=== PATIENT | female | born 1975 | race Caucasian/White ===

== ENCOUNTER → 2016-10-20 | Day surgery (SDC) | payer OTHER ==
[~2016-10-20] VITALS: Ht 156.2 cm; Wt 68.2 kg
== END | disposition home or self-care (01) ==
LOC: FAS 07:55
DX: R10.13 Epigastric pain (principal); Z79.899 Other long term (current) drug therapy; Z98.890 Other specified postprocedural states
CPT/HCPCS: 84703; J2704